=== PATIENT | male | born 2000 | race Caucasian/White ===

== ENCOUNTER 2023-08-22 17:07 | Emergency (ER) | payer OTHER ==
[~2023-08-22] VITALS: Ht 165.1 cm; Wt 69.1 kg
[2023-08-22 17:08] VITALS: BP 131/74; TEMP 98.5; O2SAT 97
[2023-08-22 20:38] LABS: HEPATITIS B SURFACE ANTIBODY POSITIVE (POSITIVE)
== END 2023-08-22 20:00 | disposition home or self-care (01) ==
LOC: M ED 17:07
DX: Z11.59 Encounter for screening for other viral diseases (principal)